=== PATIENT | female | born 1945 | race Caucasian/White ===

== ENCOUNTER 2022-12-04 18:40 | Emergency (ER) | payer BC ==
[2022-12-04] MEDS ORDERED: Lidocaine 1% 5 ML VIAL INJECT ONE (19:43)
[2022-12-04] MEDS ORDERED: Diphtheria,Pertussis(Acell),Tetanus Vaccine 0.5 ML Syringe IM ONE (19:44)
== END 2022-12-04 20:24 | disposition home or self-care (01) ==
LOC: DL.ED 18:40
DX: S60.852A Superficial foreign body of left wrist, initial encounter (principal); W45.8XXA Other foreign body or object entering through skin, initial encounter; Z88.0 Allergy status to penicillin; Z88.2 Allergy status to sulfonamides
CPT/HCPCS: 90471; 90715; 99282; 99282-25; J3490

== ENCOUNTER 2023-02-27 06:36 | Emergency (ER) | payer BC ==
[2023-02-27] MEDS ORDERED: Albuterol/Ipratropium 3.0-0.5 MG/3 ML Neb Soln NEB ONE (06:51)
[2023-02-27] MEDS ORDERED: Silver Nitrate Applicator Each ONE (07:48)
[2023-02-27] MEDS ORDERED: Silver Nitrate Applicator Each TOP ONE (07:53)
== END 2023-02-27 08:35 | disposition home or self-care (01) ==
LOC: DL.ED 06:36
DX: I83.891 Varicose veins of right lower extremity with other complications (principal); E78.00 Pure hypercholesterolemia, unspecified; I10 Essential (primary) hypertension; E11.9 Type 2 diabetes mellitus without complications; Z79.84 Long term (current) use of oral hypoglycemic drugs; Z79.899 Other long term (current) drug therapy; Z88.0 Allergy status to penicillin; Z88.2 Allergy status to sulfonamides
CPT/HCPCS: 99283; J7620-GY

== ENCOUNTER 2023-10-11 02:57 | Emergency (ER) | payer BC ==
[2023-10-11 03:44] LABS: BASOPHILS PERCENT AUTO 0.3 % (0.0-1.0); EOSINOPHILS PERCENT AUTO 3.2 % (1.0-3.0); HEMATOCRIT 42.1 % (37.0-47.0); HEMOGLOBIN 13.7 g/dL (12.0-16.0); LYMPHOCYTES PERCENT AUTO 33.8 % (20.5-50.1); MEAN CORPUSCULAR HEMOGLOBIN 30.2 pg (27.0-34.0); MEAN CORPUSCULAR HGB CONC 32.5 g/dL (33.0-35.0); MEAN CORPUSCULAR VOLUME 92.7 fL (80-100); MONOCYTES PERCENT AUTO 11.9 % (2-8); NEUTROPHILS PERCENT AUTO 50.8 % (42.2-75.2); PLATELET COUNT,PLT 261 10^3/uL (150-450); RED BLOOD CELL COUNT 4.54 10^6/uL (4.2-5.4); WHITE BLOOD CELL COUNT,WBC 7.8 10^3/uL (5.0-10.0)
[2023-10-11 03:58] LABS: ANION GAP 16.8 mEq/L (7-13); CALCIUM 10.4 mg/dL (8.5-10.1); CREATININE 0.93 mg/dL (0.55-1.02); EST CRCL DRUG DOSING (CG) 43.75 mL/min; POTASSIUM,K 3.8 mmol/L (3.5-5.1)
[2023-10-11] MEDS: Furosemide 40 MG/4 ML VIAL IVPUSH ONE (04:34)
== END 2023-10-11 06:39 | disposition home or self-care (01) ==
LOC: DL.ED 02:57
DX: F32.A Depression, unspecified (principal); F41.9 Anxiety disorder, unspecified; F43.9 Reaction to severe stress, unspecified; I10 Essential (primary) hypertension; R60.0 Localized edema; E78.00 Pure hypercholesterolemia, unspecified; E11.9 Type 2 diabetes mellitus without complications; Z88.0 Allergy status to penicillin; Z88.2 Allergy status to sulfonamides; Z79.899 Other long term (current) drug therapy; Z79.84 Long term (current) use of oral hypoglycemic drugs; Z86.16 Personal history of COVID-19
CPT/HCPCS: 36415; 71045; 80048; 83880; 85025; 96374; 99285-25; J1940